=== PATIENT | female | born 1965 | race Caucasian/White ===

== ENCOUNTER 2020-11-24 22:02 | Observation (INO) | payer OTHER ==
[2020-11-24] MEDS ORDERED: DUONEB 0.5-3 MG/3 ml Neb IH ONE ×2 (22:21→22:33)
[2020-11-24 22:32] LABS: Absolute Neutrophil Ct (ANC) 5.21 (1.4-6.9); BASOPHIL % 0.4 % (0.0-0.4); Basophil (Absolute #) 0.04 (0-0.4); Eosinophil % 2.4 % (0.00-5.0); Eosinophil (Absolute #) 0.24 (0-0.5); Hematocrit 42.7 % (35-47); Hemoglobin 13.7 gm/dl (12.0-16.0); Lymphocyte (Absolute #) 3.74 (1.0-4.6); Lymphocytes % 36.8 % (24.0-44.0); Mean Cell Volume 91.6 fl (78-100); Mean Corpuscular Hemoglobin 29.4 pg (26-32); Mean Corpuscular Hgb Concent. 32.1 g/dl (32-36); Mean Platelet Volume 10.1 fl (7.5-11.0); Monocyte (Absolute #) 0.92 (0.0-1.3); Monocytes % 9.1 % (0.0-12.0); Neutrophil % 51.3 % (36.0-66.0); Platelet Count 265 K/mm3 (150-450); Red Blood Count 4.66 M/mm3 (4.1-5.4); Red Cell Distribution Width 13.7 % (11.5-14.0); White Blood Count 10.2 K/mm3 (4.0-10.5)
--- NOTE | 2020-11-24 22:34 | ERPHSYRPT ---
- History of Present Illness Time Seen by Provider: 11/24/20 22:10 Source: patient Exam Limitations: no limitations Patient Subjective Stated Complaint: pt states "For the past 2 nights I have been getting short of breath at night time." "I just got my 2nd covid vaccine an d thought it could be the side effect." Triage Nursing Assessment: pt ambulated into the er; pt is axo x4; c/o shortness of breath; pt states that she has been sob for the past 2 days; pt states that she received her covid vaccine 3 days ago and thought it could be a side effect of the vaccine; pt states that the SOB is worse at night time; pt states that she has generalized weakness; pt states that she is having back pain; pt states that she had nausea and vomited a couple times; pt states that she has trouble walking and getting SOB; pt does not appear to be in distress; pt has wet cough; pt states that vomiting up clear liquid; pt states that she has chills; clear lung sounds in all lobes; clear heart tones; hypertension Physician History: 55 years old female presented in the ER with chief complaint of cough and shortness of breath for the last 2 days. Patient reports she received second dose of Covid vaccine 3 days ago and started to have aches and pains along with chills. 2 days ago she started to have shortness of breath especially at nighttime with activity and yesterday started to have cough productive of minimal clear sputum. Patient reports she gets short of breath after taking 15- 20 steps and improves with resting. Denies any chest tightness pressure or pain. Also report having some soreness in the chest with deep breathing. No history of CAD asthma or COPD. Timing/Duration: day(s) (3), gradual onset, worse Activities at Onset: activity Severity of Dyspnea-Max: moderate Severity of Dyspnea-Current: moderate Modifying Factors: Improves With: rest. Worsens With: activity, coughing, deep breath Associated Symptoms: cough, chest pain/discomfort, painful breathing, productive cough, tightness, No wheezing, No heaviness, No leg swelling, No muscle spasms f eet Allergies/Adverse Reactions: amitriptyline [From Elavil] Allergy (Verified 11/24/20 22:33) clarithromycin [From Biaxin] Allergy (Verified 11/24/20 22:33) Iodinated Contrast Media Allergy (Verified 11/25/20 00:18) Hives morphine Allergy (Verified 11/24/20 22:07) Hives Sulfa (Sulfonamide Antibiotics) Allergy (Verified 11/24/20 22:07) Home Medications: Acetaminophen [Acetaminophen 8 Hour] 1,300 mg PO Q8H PRN 11/24/20 [History] Albuterol Sulfate [Proair Hfa] 1 puff IH Q6H PRN 11/24/20 [History] Aspirin EC 81 mg [Ecotrin 81 mg] 81 mg PO DAILY 11/24/20 [History] Cetirizine HCl [Zyrtec] 10 mg PO DAILY 11/24/20 [History] EPINEPHrine [Symjepi] 0.3 mg IJ DAILY PRN 11/24/20 [History] Erenumab-Aooe [Aimovig Autoinjector] 70 mg SQ UD 11/24/20 [History] Fluoxetine HCl [Prozac] 40 mg PO DAILY 11/24/20 [History] Fluticasone Propionate [Flonase NASAL] 16 gm NS BID 11/24/20 [History] RX: Erenumab-Aooe [Aimovig Autoinjector] 140 mg SQ UD 11/24/20 [History] RX: Ibuprofen 800 mg PO TID 11/24/20 [History] RX: Omeprazole 40 mg PO DAILY 11/24/20 [History] RX: Ropinirole HCl 0.25 mg PO HS 11/24/20 [History] Tizanidine HCl 4 mg [Zanaflex 4 MG] 8 mg PO HS 11/24/20 [History] Hx Tetanus, Diphtheria Vaccination/Date Given: Yes Hx Influenza Vaccination/Date Given: Yes Hx Pneumococcal Vaccination/Date Given: No Travel Risk - International Travel Have you traveled outside of the country in past 3 weeks: No - Coronavirus Screening Symptoms: Shortness of Breath, Headaches/Body Aches/Fatigue Close contact with a COVID-19 positive Pt in past 14-21 Days: No - Vaccine Status Have you recieved a Covid-19 vaccination: Yes [employer]: Moderna - Vaccination Dates Date of 2cond Vaccination (if applicable): 11/21/20 - Review of Systems Constitutional: No Symptoms Eyes: No Symptoms Ears, Nose, & Throat: No Symptoms Respiratory: Cough, Dyspnea, Dyspnea on Exertion (MARIO) Cardiac: No Symptoms Abdominal/Gastrointestinal: No Symptoms Genitourinary Symptoms: No Symptoms Musculoskeletal: No Symptoms Skin: No Symptoms Neurological: No Symptoms Psychological: No Symptoms Endocrine: No Symptoms Hematologic/Lymphatic: No Symptoms Immunological/Allergic: No Symptoms - Past Medical History Pertinent Past Medical History: Yes ENT History: No Pertinent History Cardiac History: No Pertinent History Respiratory History: No Pertinent History Endocrine Medical History: No Pertinent History Musculoskeletal History: Arthritis GI Medical History: GERD History: No Pertinent History Psycho-Social History: Depression Female Reproductive Disorders: No Pertinent History Other Medical History: seasonal allergies, neurologic- dizziness, off balance, confusion; headaches - Past Surgical History Past Surgical History: Yes Gastrointestinal: Appendectomy, Cholecystectomy Musculoskeletal: Other Female Surgical History: Hysterectomy, Section Other Surgical History: cyst of hand remove - Social History Smoking Status: Former smoker Exposure to second hand smoke: No Drug Use: none Patient Lives Alone: No - Nursing Vital Signs Nursing Vital Signs: Initial Vital Signs Temperature 98.2 F 11/24/20 22:07 Pulse Rate 73 11/24/20 22:07 Respiratory Rate 20 11/24/20 22:07 Blood Pressure 163/92 11/24/20 22:07 O2 Sat by Pulse Oximetry 97 11/24/20 22:07 Pain Scale Pain Intensity 6 - Physical Exam General Appearance: no apparent distress, alert Eye Exam: PERRL/EOMI Ears, Nose, Throat Exam: hearing grossly normal, pharyngeal erythema Neck Exam: normal inspection, supple, full range of motion Respiratory Exam: normal breath sounds, lungs clear Cardiovascular/Chest Exam: normal heart sounds, regular rate/rhythm Abdominal/Gastrointestinal Exam: soft, No tenderness Extremity Exam: non-tender, normal range of motion, normal inspection Neurologic Exam: alert, oriented x 3, cooperative Skin Exam: normal color SpO2 Interpretation: normal SpO2: 97 O2 Delivery: Room Air - Course EKG Interpreted by Me: RATE ([id number]), Sinus Rhythm, NORMAL AXIS, NORMAL INTERVALS, NORMAL QRS Ordered Tests: Active Orders 24 hr Category Date Time Status EKG-ER Only STAT Care 11/24/20 22:21 Active IV Insertion STAT Care 11/24/20 22:21 Active CHEST 1 VIEW (PORTABLE) Stat Exams 11/25/20 00:15 Taken BLOOD CULTURE Stat Lab 11/25/20 Ordered CBC W DIFF Stat Lab 11/24/20 22:15 Completed CMP Stat Lab 11/24/20 22:15 Completed D-DIMER QUANTITATIVE Stat Lab 11/24/20 22:15 Completed INFLUENZA A+B LIBERTAD Stat Lab 11/24/20 22:29 Completed LIPASE Stat Lab 11/25/20 00:54 Ordered NT PRO BNP Stat Lab 11/24/20 22:15 Completed TROPONIN Q3H Lab 11/24/20 22:15 Completed TROPONIN Q3H Lab 11/25/20 01:30 Ordered TROPONIN Q3H Lab 11/25/20 04:30 Ordered TROPONIN Q3H Lab 11/25/20 07:30 Ordered TROPONIN Q3H Lab 11/25/20 10:30 Ordered Respiratory Therapy Assessment DAILY RT 11/24/20 22:39 Completed Medication Summary Discontinued Medications Generic Name Dose Route Start Last Admin Trade Name Freq PRN Reason Stop Dose Admin Albuterol/Ipratropium 3 ml 11/24/20 22:21 11/24/20 22:36 Duoneb 0.5-3 Mg/3 Ml Neb IH 11/24/20 22:22 3 ml STAT ONE Administration Albuterol/Ipratropium Confirm 11/24/20 22:33 Duoneb 0.5-3 Mg/3 Ml Neb Administered 11/24/20 22:34 Dose 3 ml IH .STK-MED ONE Diphenhydramine HCl 25 mg 11/25/20 00:53 Benadryl 50 Mg/Ml IV 11/25/20 00:54 STAT ONE Famotidine 20 mg 11/25/20 00:53 Pepcid 20 Mg Vial IV 11/25/20 00:54 STAT ONE Methylprednisolone Sodium Succinate 125 mg 11/25/20 00:53 Solu-Medrol 125 Mg IV 11/25/20 00:54 STAT ONE Ondansetron HCl Confirm 11/24/20 23:30 Zofran 4 Mg/2 Ml Vial Administered 11/24/20 23:31 Dose 4 mg .ROUTE .STK-MED ONE Ondansetron HCl 4 mg 11/24/20 23:38 11/24/20 23:39 Zofran 4 Mg/2 Ml Vial IV 11/24/20 23:39 4 mg STAT ONE Administration Lab/Rad Data: Laboratory Result Diagrams 11/24/20 22:15 11/24/20 22:15 Laboratory Results 11/24/20 11/24/20 11/24/20 Range/Units 22:29 22:15 22:15 WBC (4.0-10.5) K/mm3 RBC (4.1-5.4) M/mm3 Hgb (12.0-16.0) gm/dl Hct (35-47) % MCV (78-100) fl MCH (26-32) pg MCHC (32-36) g/dl RDW (11.5-14.0) % Plt Count (150-450) K/mm3 MPV (7.5-11.0) fl Gran % (36.0-66.0) % Eos # (Auto) (0-0.5) Absolute Lymphs (auto) (1.0-4.6) Absolute Monos (auto) (0.0-1.3) Lymphocytes % (24.0-44.0) % Monocytes % (0.0-12.0) % Eosinophils % (0.00-5.0) % Basophils % (0.0-0.4) % Absolute Granulocytes (1.4-6.9) Basophils # (0-0.4) D-Dimer 534 H* (215-500) ng/mL Sodium (137-145) mmol/L Potassium (3.5-5.1) mmol/L Chloride (98-107) mmol/L Carbon Dioxide (22-30) mmol/L Anion Gap (5-15) MEQ/L BUN (7-17) mg/dL Creatinine (0.52-1.04) mg/dL Estimated GFR ML/MIN Glucose (74-106) mg/dL Calcium (8.4-10.2) mg/dL Total Bilirubin (0.2-1.3) mg/dL AST (14-36) U/L ALT (0-35) U/L Alkaline Phosphatase (38-126) U/L Troponin I < 0.012 (0.000-0.034) ng/mL NT-Pro-B Natriuret Pep (0-900) pg/mL Serum Total Protein (6.3-8.2) g/dL Albumin (3.5-5.0) g/dL Influenza Type A Ag NEGATIVE (NEGATIVE) Influenza Type B Ag NEGATIVE (NEGATIVE) 11/24/20 11/24/20 Range/Units 22:15 22:15 WBC 10.2 (4.0-10.5) K/mm3 RBC 4.66 (4.1-5.4) M/mm3 Hgb 13.7 (12.0-16.0) gm/dl Hct 42.7 (35-47) % MCV 91.6 (78-100) fl MCH 29.4 (26-32) pg MCHC 32.1 (32-36) g/dl RDW 13.7 (11.5-14.0) % Plt Count 265 (150-450) K/mm3 MPV 10.1 (7.5-11.0) fl Gran % 51.3 (36.0-66.0) % Eos # (Auto) 0.24 (0-0.5) Absolute Lymphs (auto) 3.74 (1.0-4.6) Absolute Monos (auto) 0.92 (0.0-1.3) Lymphocytes % 36.8 (24.0-44.0) % Monocytes % 9.1 (0.0-12.0) % Eosinophils % 2.4 (0.00-5.0) % Basophils % 0.4 (0.0-0.4) % Absolute Granulocytes 5.21 (1.4-6.9) Basophils # 0.04 (0-0.4) D-Dimer (215-500) ng/mL Sodium 138 (137-145) mmol/L Potassium 3.1 L (3.5-5.1) mmol/L Chloride 102 (98-107) mmol/L Carbon Dioxide 23 (22-30) mmol/L Anion Gap 15.9 H (5-15) MEQ/L BUN 9 (7-17) mg/dL Creatinine 0.79 (0.52-1.04) mg/dL Estimated GFR > 60.0 ML/MIN Glucose 104 (74-106) mg/dL Calcium 9.3 (8.4-10.2) mg/dL Total Bilirubin 0.40 (0.2-1.3) mg/dL AST 24 (14-36) U/L ALT 20 (0-35) U/L Alkaline Phosphatase 98 (38-126) U/L Troponin I (0.000-0.034) ng/mL NT-Pro-B Natriuret Pep 160 (0-900) pg/mL Serum Total Protein 7.2 (6.3-8.2) g/dL Albumin 4.1 (3.5-5.0) g/dL Influenza Type A Ag (NEGATIVE) Influenza Type B Ag (NEGATIVE) - Progress Progress: unchanged Air Movement: good Progress Note: 11/25/20 00:57 55 years old is evaluated for increasing dyspnea on exertion with cough. Patient is getting hypoxic to 86% with ambulation and even resting oxygen saturation around 88/89%. She is given DuoNeb with no significant improvement. Lungs bilateral clear. Chest x-ray did not show any acute pneumonic infiltrate reviewed by me, official report is pending. She has normal white count, mild hypokalemia and negative troponins. D-dimers mildly elevated but age-adjusted negative. Patient is allergic to contrast dye, will give her pretreatment befo re CTA chest done. She is given a dose of antibiotics. Patient is currently on 2 L oxygen and saturation around 97%. I believe patient would benefit with observation and further evaluation of the cause of dyspnea. Discussed with Dr. Miranda and patient is being admitted. Blood Culture(s) Obtained: Yes Antibiotics given: Yes Discussed with : Lolis Will see patient in: hospital (observation) Counseled pt/family regarding: lab results, diagnosis, rad results - Departure Departure Disposition: Observation Clinical Impression: Dyspnea on exertion, Bronchitis Respiratory failure Qualifiers: Chronicity: acute Respiratory failure complication: hypoxia Qualified Code(s): J96.01 - Acute respiratory failure with hypoxia Condition: Stable Critical Care Time: No Referrals: [facility] [NON-STAFF PHY W/O PRIVILEGES] -
[2020-11-24 22:48] LABS: INFLUENZA A NEGATIVE (NEGATIVE); INFLUENZA B NEGATIVE (NEGATIVE)
[2020-11-24 22:51] LABS: ALBUMIN 4.1 g/dL (3.5-5.0); ALKALINE PHOSPHATASE 98 U/L (38-126); ANION GAP 15.9 MEQ/L (5-15); BLOOD UREA NITROGEN 9 mg/dL (7-17); CHLORIDE 102 mmol/L (98-107); Calcium 9.3 mg/dL (8.4-10.2); Carbon Dioxide 23 mmol/L (22-30); Creatinine 1 0.79 mg/dL (0.52-1.04); EST GLOMERULAR FILTRATION RATE > 60.0 ML/MIN; Glucose 104 mg/dL (74-106); NT PRO BNP 160 pg/mL (0-900); Potassium 3.1 mmol/L (3.5-5.1); SGOT/AST 24 U/L (14-36); SGPT/ALT 20 U/L (0-35); SODIUM 138 mmol/L (137-145); Total Protein 7.2 g/dL (6.3-8.2)
[2020-11-24] MEDS ORDERED: Zofran 4 MG/2 ML VIAL ONE (23:30)
[2020-11-24] MEDS ORDERED: Zofran 4 MG/2 ML VIAL IV ONE (23:38)
[2020-11-25] MEDS ORDERED: Pepcid 20 MG VIAL IV ONE ×2 (00:53→00:55)
[2020-11-25] MEDS ORDERED: solu-MEDROL 125 MG IV ONE (00:53)
[2020-11-25] MEDS ORDERED: BENADRYL 50 MG/ML IV ONE ×2 (00:53→02:53)
[2020-11-25] MEDS ORDERED: BENADRYL 50 MG/ML ONE ×2 (00:55→02:52)
[2020-11-25] MEDS ORDERED: solu-MEDROL 125 MG ONE (00:55)
[2020-11-25] MEDS ORDERED: ROCEPHIN 1 Gm-D5w 50 ml Bag** 1 G/50 ML IVPB IV STA (00:56)
[2020-11-25] MEDS ORDERED: ROCEPHIN 1 Gm-D5w 50 ml Bag** 1 G/50 ML IVPB IV ONE (01:04)
[2020-11-25 01:56] LABS: INFLUENZA A NEGATIVE (NEGATIVE); INFLUENZA B NEGATIVE (NEGATIVE); RESPIRATORY SYNCTIAL VIRUS NEGATIVE (Negative)
[2020-11-25] MEDS ORDERED: DUONEB 0.5-3 MG/3 ml Neb IH SCH (04:36)
[2020-11-25] MEDS ORDERED: Zofran 4 MG/2 ML VIAL IV PRN (04:36)
[2020-11-25] MEDS ORDERED: solu-MEDROL 125 MG IV SCH (04:36)
[2020-11-25] MEDS ORDERED: TYLENOL 325 MG PO PRN ×2 (04:36→11:19)
[2020-11-25] MEDS ORDERED: DUONEB 0.5-3 MG/3 ml Neb IH PRN (05:22)
[2020-11-25] MEDS: solu-MEDROL 125 MG IV SCH ×3 (07:34→17:44)
--- NOTE | 2020-11-25 08:46 | XRAY ---
Indication: Short of breath and cough. Elevated d-dimer. Multiple contiguous axial images obtained through the chest using 80 cc Isovue 370 contrast and PE protocol. Comparison: None There is good opacification of the pulmonary arteries to include the lobar and segmental branches. No pulmonary embolus. Heart is not enlarged. Aorta is normal in course and caliber. No pathologic mediastinal/hilar lymphadenopathy. Small hiatal hernia. Lungs demonstrate mild pulmonary emphysema and minimal bilateral dependent atelectasis. Also subtle patchy peripheral groundglass airspace opacities bilaterally without consolidation or effusion. Bony thorax intact with minimal degenerative changes throughout the spine. Limited upper abdomen demonstrates mild fatty liver. Incidental bilateral extrarenal pelvises. Impression: 1. Negative pulmonary embolus. 2. Subtle patchy bilateral peripheral groundglass airspace disease. 3. Incidental pulmonary emphysema, small hiatal hernia, and fatty liver. Comment: Preliminary interpretation was made by [facility]. No critical discrepancy.
--- NOTE | 2020-11-25 08:46 | XRAY ---
Indication: Short of breath and cough. Comparison: February 01, 2010. Portable chest clear. Heart and mediastinal structures within normal limits. Bony thorax intact. Impression: Radiographically nonacute chest.
[2020-11-25] MEDS: Pepcid 20 MG VIAL IV SCH ×2 (09:40→21:26)
[2020-11-25] MEDS ORDERED: VIBRAMYCIN 100 MG*** 100 MG in Dextrose 5%/Water IV Soln. 100ML PLUS BAG 100 ML IV SCH ×4 (10:00)
[2020-11-25] MEDS ORDERED: Ventolin Hfa MDI IH PRN (11:14)
[2020-11-25] MEDS ORDERED: ACETAMINOPHEN 1300 MG PO PRN (11:14)
[2020-11-25] MEDS ORDERED: EPINEPHRINE 0.3 MG IJ PRN (11:14)
[2020-11-25] MEDS ORDERED: ERENUMAB AOOE 70 MG SQ SCH (11:15)
[2020-11-25] MEDS ORDERED: EPINEPHRINE 1MG/ML AMP SQ PRN (11:22)
[2020-11-25] MEDS ORDERED: VENTOLIN COMMON CANISTER IH PRN (11:26)
[2020-11-25] MEDS ORDERED: MEDICATION INTERVENTION MC SCH (11:30)
[2020-11-25] MEDS: MAG-OX 400 PO SCH (11:36)
[2020-11-25] MEDS: Protonix 40MG Tablet PO SCH (11:37)
[2020-11-25] MEDS: Prozac 20 MG PO SCH (11:38)
[2020-11-25] MEDS: ECOTRIN 81 MG PO SCH (11:38)
[2020-11-25] MEDS: CLARITIN 10 MG PO SCH (11:38)
[2020-11-25] MEDS: Flonase NASAL NS SCH ×2 (11:41→21:25)
[2020-11-25] MEDS ORDERED: Robitussin-Dm Syrup PO PRN (14:40)
--- NOTE | 2020-11-25 14:40 | PCM.HP ---
History of Present Illness - Chief Complaint Chief Complaint: acute hypoxic respiratory failure History of Present Illness: is a 55 year old female who presented to ER with shortness of breath and cough productive of clear to white mucus,N/V x 2 days. Oxygen sats 87%in ER.Patient is follow by Allergy/Immunology Dr Su and has epipen if needed.States she is allergic to jovana and cockroaches and other. Her administers a weekly allergy shot at home per Dr Su's instruction. She received her 2nd Covid vaccine 3 days prior to these symptoms starting.Patient denies fever or chest pain or hemoptysis. - Review of Systems Constitutional: Chills, Other (no fever) Eyes: No Symptoms Ears, Nose, & Throat: No Symptoms Respiratory: Cough, Short Of Breath, Wheezing Cardiac: No Symptoms Abdominal/Gastrointestinal: Nausea, Vomiting Genitourinary Symptoms: No Symptoms Musculoskeletal: No Symptoms Skin: No Symptoms Neurological: Dizziness, Headache (is under car of Neurologist Dr Jaden Harris- to have EEG 12/05/2020), Other Psychological: No Symptoms Endocrine: No Symptoms Hematologic/Lymphatic: No Symptoms Immunological/Allergic: Food Allergy, Other (allergy to jovana and cockroaches) Medications & Allergies Home Medications: Home Medication List Acetaminophen [Acetaminophen 8 Hour] 1,300 mg PO Q8H PRN 11/24/20 [History Confirmed 11/25/20] Albuterol Sulfate [Proair Hfa] 1 puff IH Q6H PRN 11/24/20 [History Confirmed 11/24/20] Aspirin EC 81 mg [Ecotrin 81 mg] 81 mg PO DAILY 11/24/20 [History Confirmed 11/25/20] Cetirizine HCl [Zyrtec] 10 mg PO DAILY 11/24/20 [History Confirmed 11/25/20] EPINEPHrine [Symjepi] 0.3 mg IJ DAILY PRN 11/24/20 [History Confirmed 11/24/20] Erenumab-Aooe [Aimovig Autoinjector] 70 mg SQ UD 11/24/20 [History Confirmed 11/24/20] Erenumab-Aooe [Aimovig Autoinjector] 140 mg SQ UD 11/24/20 [History Confirmed 11/24/20] Fluoxetine HCl [Prozac] 40 mg PO DAILY 11/24/20 [History Confirmed 11/25/20] Fluticasone Propionate [Flonase NASAL] 16 gm NS BID 11/24/20 [History Confirmed 11/24/20] Ibuprofen 800 mg PO TID 11/24/20 [History Confirmed 11/24/20] Omeprazole 40 mg PO DAILY 11/24/20 [History Confirmed 11/25/20] Ropinirole HCl 0.25 mg PO HS 11/24/20 [History Confirmed 11/25/20] Tizanidine HCl 4 mg [Zanaflex 4 MG] 8 mg PO HS 11/24/20 [History Confirmed 11/25/20] Magnesium 250 mg PO DAILY 11/25/20 [History Confirmed 11/25/20] Allergies/Adverse Reactions: Allergies Allergy/AdvReac Type Severity Reaction Status Date / Time amitriptyline [From Elavil] Allergy Verified 11/24/20 22:33 clarithromycin [From Biaxin] Allergy Verified 11/24/20 22:33 Iodinated Contrast Media Allergy Hives Verified 11/25/20 00:18 morphine Allergy Hives Verified 11/24/20 22:07 Sulfa (Sulfonamide Allergy Verified 11/24/20 22:07 Antibiotics) - Past Medical History Past Medical History: Yes Neurological History: No Pertinent History ENT History: No Pertinent History Cardiac History: No Pertinent History Respiratory History: No Pertinent History, Other (allergies and bronchospasm ) Endocrine Medical History: No Pertinent History Musculoskelatal History: Arthritis GI Medical History: GERD History: No Pertinent History Pyscho-Social History: Depression Reproductive Disorders: No Pertinent History Comment: seasonal allergies, neurologic- dizziness, off balance, confusion; headaches - Female History Are you now?: No - Past Surgical History Past Surgical History: Yes Neuro Surgical History: No Pertinent History Cardiac History: No Pertinent History Respiratory Surgery: No Pertinent History GI Surgical History: Appendectomy, Cholecystectomy Genitourinary Surgical Hx: No Pertinent History Musculskeletal Surgical Hx: Other Female Surgical History: Hysterectomy, Section Other Surgical History: cyst of hand remove - Social History Smoking Status: Former smoker Exposure to second hand smoke: No Alcohol: Rarely Drug Use: none - Physical Exam Vital Signs: Vital Signs - 24 hr Temp Pulse Resp BP Pulse Ox 11/25/20 12:00 97.3 F 72 20 134/67 97 11/25/20 08:00 97.7 F 75 18 139/76 95 11/25/20 07:14 74 16 95 11/25/20 04:59 97.3 F 77 18 169/86 91 L 11/25/20 04:08 74 16 141/87 96 11/25/20 03:00 98.2 F 72 156/95 97 11/25/20 02:24 98.2 F 72 156/95 97 11/25/20 01:08 72 156/95 97 11/25/20 01:00 97 11/25/20 00:07 77 123/74 95 11/24/20 23:36 76 133/84 95 11/24/20 22:39 71 17 96 11/24/20 22:07 98.2 F 73 20 163/92 97 General Appearance: no apparent distress Neurologic Exam: alert, oriented x 3, cooperative, emblem maker II-XII nml as tested, normal mood/affect, other (no motor or sensory defecit) Eye Exam: PERRL/EOMI Ears, Nose, Throat Exam: moist mucous membranes, other (PND) Neck Exam: normal inspection Respiratory Exam: diminished breath sounds, wheezing (left mid) Cardiovascular Exam: regular rate/rhythm, other (no mur no edema) Gastrointestinal/Abdomen Exam: soft (mildly tender epigastrum), other (emesis in basin is thick clear to white mucuc) Back Exam: normal inspection Extremity Exam: normal inspection Skin Exam: normal color, warm, dry Results - Labs Lab/Micro Results: Lab Results-Last 24 Hours 11/24/20 11/24/20 11/24/20 Range/Units 22:15 22:15 22:15 WBC 10.2 (4.0-10.5) K/mm3 RBC 4.66 (4.1-5.4) M/mm3 Hgb 13.7 (12.0-16.0) gm/dl Hct 42.7 (35-47) % MCV 91.6 (78-100) fl MCH 29.4 (26-32) pg MCHC 32.1 (32-36) g/dl RDW 13.7 (11.5-14.0) % Plt Count 265 (150-450) K/mm3 MPV 10.1 (7.5-11.0) fl Gran % 51.3 (36.0-66.0) % Eos # (Auto) 0.24 (0-0.5) Absolute Lymphs (auto) 3.74 (1.0-4.6) Absolute Monos (auto) 0.92 (0.0-1.3) Lymphocytes % 36.8 (24.0-44.0) % Monocytes % 9.1 (0.0-12.0) % Eosinophils % 2.4 (0.00-5.0) % Basophils % 0.4 (0.0-0.4) % Absolute Granulocytes 5.21 (1.4-6.9) Basophils # 0.04 (0-0.4) D-Dimer 534 H* (215-500) ng/mL Sodium 138 (137-145) mmol/L Potassium 3.1 L (3.5-5.1) mmol/L Chloride 102 (98-107) mmol/L Carbon Dioxide 23 (22-30) mmol/L Anion Gap 15.9 H (5-15) MEQ/L BUN 9 (7-17) mg/dL Creatinine 0.79 (0.52-1.04) mg/dL Estimated GFR > 60.0 ML/MIN Glucose 104 (74-106) mg/dL Calcium 9.3 (8.4-10.2) mg/dL Total Bilirubin 0.40 (0.2-1.3) mg/dL AST 24 (14-36) U/L ALT 20 (0-35) U/L Alkaline Phosphatase 98 (38-126) U/L Troponin I (0.000-0.034) ng/mL NT-Pro-B Natriuret Pep 160 (0-900) pg/mL Serum Total Protein 7.2 (6.3-8.2) g/dL Albumin 4.1 (3.5-5.0) g/dL Lipase (23-300) U/L Influenza Type A Ag (NEGATIVE) Influenza Type B Ag (NEGATIVE) RSV (PCR) (Negative) SARS-CoV-2 (PCR) (NEGATIVE) 11/24/20 11/24/20 11/25/20 Range/Units 22:15 22:29 00:00 WBC (4.0-10.5) K/mm3 RBC (4.1-5.4) M/mm3 Hgb (12.0-16.0) gm/dl Hct (35-47) % MCV (78-100) fl MCH (26-32) pg MCHC (32-36) g/dl RDW (11.5-14.0) % Plt Count (150-450) K/mm3 MPV (7.5-11.0) fl Gran % (36.0-66.0) % Eos # (Auto) (0-0.5) Absolute Lymphs (auto) (1.0-4.6) Absolute Monos (auto) (0.0-1.3) Lymphocytes % (24.0-44.0) % Monocytes % (0.0-12.0) % Eosinophils % (0.00-5.0) % Basophils % (0.0-0.4) % Absolute Granulocytes (1.4-6.9) Basophils # (0-0.4) D-Dimer (215-500) ng/mL Sodium (137-145) mmol/L Potassium (3.5-5.1) mmol/L Chloride (98-107) mmol/L Carbon Dioxide (22-30) mmol/L Anion Gap (5-15) MEQ/L BUN (7-17) mg/dL Creatinine (0.52-1.04) mg/dL Estimated GFR ML/MIN Glucose (74-106) mg/dL Calcium (8.4-10.2) mg/dL Total Bilirubin (0.2-1.3) mg/dL AST (14-36) U/L ALT (0-35) U/L Alkaline Phosphatase (38-126) U/L Troponin I < 0.012 (0.000-0.034) ng/mL NT-Pro-B Natriuret Pep (0-900) pg/mL Serum Total Protein (6.3-8.2) g/dL Albumin (3.5-5.0) g/dL Lipase 103 (23-300) U/L Influenza Type A Ag NEGATIVE (NEGATIVE) Influenza Type B Ag NEGATIVE (NEGATIVE) RSV (PCR) (Negative) SARS-CoV-2 (PCR) (NEGATIVE) 11/25/20 11/25/20 11/25/20 Range/Units 01:14 01:14 04:38 WBC (4.0-10.5) K/mm3 RBC (4.1-5.4) M/mm3 Hgb (12.0-16.0) gm/dl Hct (35-47) % MCV (78-100) fl MCH (26-32) pg MCHC (32-36) g/dl RDW (11.5-14.0) % Plt Count (150-450) K/mm3 MPV (7.5-11.0) fl Gran % (36.0-66.0) % Eos # (Auto) (0-0.5) Absolute Lymphs (auto) (1.0-4.6) Absolute Monos (auto) (0.0-1.3) Lymphocytes % (24.0-44.0) % Monocytes % (0.0-12.0) % Eosinophils % (0.00-5.0) % Basophils % (0.0-0.4) % Absolute Granulocytes (1.4-6.9) Basophils # (0-0.4) D-Dimer (215-500) ng/mL Sodium (137-145) mmol/L Potassium (3.5-5.1) mmol/L Chloride (98-107) mmol/L Carbon Dioxide (22-30) mmol/L Anion Gap (5-15) MEQ/L BUN (7-17) mg/dL Creatinine (0.52-1.04) mg/dL Estimated GFR ML/MIN Glucose (74-106) mg/dL Calcium (8.4-10.2) mg/dL Total Bilirubin (0.2-1.3) mg/dL AST (14-36) U/L ALT (0-35) U/L Alkaline Phosphatase (38-126) U/L Troponin I < 0.012 < 0.012 (0.000-0.034) ng/mL NT-Pro-B Natriuret Pep (0-900) pg/mL Serum Total Protein (6.3-8.2) g/dL Albumin (3.5-5.0) g/dL Lipase (23-300) U/L Influenza Type A Ag NEGATIVE (NEGATIVE) Influenza Type B Ag NEGATIVE (NEGATIVE) RSV (PCR) NEGATIVE (Negative) SARS-CoV-2 (PCR) NEGATIVE (NEGATIVE) - Radiology Impressions Radiology Exams & Impressions: Radiology Procedures Category Date Time Status CHEST 1 VIEW (PORTABLE) Stat Exams 11/25/20 00:15 Completed CHEST WITH CONTRAST [CT] Stat Exams 11/25/20 02:32 Completed - Other Procedures and Tests Respiratory Therapy 11/24/20 22:39 Respiratory Therapy Assessment DAILY 11/25/20 04:36 Oxygen Nasal Cannula 2 lpm Assessment/Plan (1) Bronchospasm with bronchitis, acute Current Visit: Yes Status: Acute Assessment & Plan: stll tight mid left lung field. WBC not elevated -d/c Rocephin and Doxy,continue Solumedrol,start Singulair Code(s): J20.9 - ACUTE BRONCHITIS, UNSPECIFIED (2) Nausea & vomiting Current Visit: Yes Status: Acute Qualifiers: Vomiting type: unspecified Vomiting Intractability: non-intractable Qualified Code(s): R11.2 - Nausea with vomiting, unspecified Assessment & Plan: has improved,emesis is clear to white thick mucus-no bile. Code(s): R11.2 - NAUSEA WITH VOMITING, UNSPECIFIED (3) Multiple allergies Current Visit: Yes Status: Chronic Assessment & Plan: follows with [facility]-notify her of admission Code(s): Z88.9 - ALLERGY STATUS TO UNSPECIFIED DRUG/MEDS/BIOL SUBST (4) Chronic headaches Current Visit: Yes Status: Chronic Qualifiers: Headache type: unspecified Assessment & Plan: Work up in progress with Dr Jaden Harris,EEG to be done 12/05/20 per patient for possible seizures Code(s): R51.9 - HEADACHE, UNSPECIFIED; G89.29 - OTHER CHRONIC PAIN
[2020-11-25] MEDS ORDERED: Diflucan 100 MG PO ONE (15:00)
[2020-11-25] MEDS ORDERED: IBUPROFEN 800 MG PO SCH (15:00)
[2020-11-25] MEDS: MOTRIN 400 MG PO SCH ×2 (15:12→21:26)
[2020-11-25] MEDS: Requip 0.5 MG PO SCH (21:26)
[2020-11-25] MEDS: Zanaflex 4 MG PO SCH (21:26)
[2020-11-25] MEDS ORDERED: ROCEPHIN 1 Gm-D5w 50 ml Bag** 1 G/50 ML IVPB IV SCH (22:00)
[2020-11-25] MEDS ORDERED: ROPINIROLE HCL 0.25 MG PO SCH (22:00)
[2020-11-26] MEDS: solu-MEDROL 125 MG IV SCH ×2 (05:40)
[2020-11-26 06:40] LABS: Absolute Neutrophil Ct (ANC) 13.42 (1.4-6.9); BASOPHIL % 0.1 % (0.0-0.4); Basophil (Absolute #) 0.02 (0-0.4); Eosinophil (Absolute #) 0 (0-0.5); Hematocrit 40.5 % (35-47); Hemoglobin 12.8 gm/dl (12.0-16.0); Lymphocyte (Absolute #) 1.93 (1.0-4.6); Lymphocytes % 12.2 % (24.0-44.0); Mean Cell Volume 93.1 fl (78-100); Mean Corpuscular Hemoglobin 29.4 pg (26-32); Mean Corpuscular Hgb Concent. 31.6 g/dl (32-36); Mean Platelet Volume 10.5 fl (7.5-11.0); Monocyte (Absolute #) 0.47 (0.0-1.3); Neutrophil % 84.7 % (36.0-66.0); Platelet Count 283 K/mm3 (150-450); Red Blood Count 4.35 M/mm3 (4.1-5.4); Red Cell Distribution Width 13.7 % (11.5-14.0); White Blood Count 15.8 K/mm3 (4.0-10.5)
[2020-11-26 06:54] LABS: ALBUMIN 3.5 g/dL (3.5-5.0); ALKALINE PHOSPHATASE 90 U/L (38-126); BLOOD UREA NITROGEN 12 mg/dL (7-17); CHLORIDE 101 mmol/L (98-107); Calcium 9.7 mg/dL (8.4-10.2); Carbon Dioxide 26 mmol/L (22-30); Creatinine 1 0.72 mg/dL (0.52-1.04); EST GLOMERULAR FILTRATION RATE > 60.0 ML/MIN; Glucose 186 mg/dL (74-106); Potassium 4.3 mmol/L (3.5-5.1); SGOT/AST 18 U/L (14-36); SGPT/ALT 15 U/L (0-35); SODIUM 136 mmol/L (137-145); Total Protein 6.4 g/dL (6.3-8.2)
[2020-11-26] MEDS ORDERED: NON-FORMULARY ITEM (Fluoxetine Hcl [Prozac] 40 MG) PO SCH (10:00)
[2020-11-26] MEDS ORDERED: NON-FORMULARY ITEM (Omeprazole [Omeprazole] 40 MG) PO SCH (10:00)
[2020-11-26] MEDS ORDERED: NON-FORMULARY ITEM (Cetirizine Hcl [Zyrtec] 10 MG) PO SCH (10:00)
[2020-11-26] MEDS ORDERED: NON-FORMULARY ITEM (Magnesium [Magnesium] 250 MG) PO SCH (10:00)
[2020-11-26] MEDS: MAG-OX 400 PO SCH (10:08)
[2020-11-26] MEDS: MOTRIN 400 MG PO SCH ×3 (10:08→21:52)
[2020-11-26] MEDS: ECOTRIN 81 MG PO SCH (10:08)
[2020-11-26] MEDS: Pepcid 20 MG VIAL IV SCH ×2 (10:08→21:52)
[2020-11-26] MEDS: Protonix 40MG Tablet PO SCH (10:08)
[2020-11-26] MEDS: Prozac 20 MG PO SCH (10:08)
[2020-11-26] MEDS: CLARITIN 10 MG PO SCH (10:08)
[2020-11-26] MEDS: Singulair 10 MG PO SCH (10:09)
[2020-11-26] MEDS: Flonase NASAL NS SCH ×2 (10:09→21:53)
[2020-11-26] MEDS ORDERED: BENADRYL 12.5 MG/5 ML PO PRN (14:39)
[2020-11-26] MEDS: Requip 0.5 MG PO SCH (21:52)
[2020-11-26] MEDS: Zanaflex 4 MG PO SCH (21:52)
[2020-11-27 06:36] VITALS: BP 108/55; PULSE 56
[2020-11-27 07:41] VITALS: O2SAT 92
[2020-11-27] MEDS ORDERED: DELTASONE 20 MG PO SCH (10:00)
[2020-11-27] MEDS: ECOTRIN 81 MG PO SCH (10:04)
[2020-11-27] MEDS: MAG-OX 400 PO SCH (10:04)
[2020-11-27] MEDS: CLARITIN 10 MG PO SCH (10:04)
[2020-11-27] MEDS: Prozac 20 MG PO SCH (10:05)
[2020-11-27] MEDS: Protonix 40MG Tablet PO SCH (10:05)
[2020-11-27] MEDS: MOTRIN 400 MG PO SCH (10:05)
[2020-11-27] MEDS: Singulair 10 MG PO SCH (10:05)
[2020-11-27] MEDS: Flonase NASAL NS SCH (10:06)
[2020-11-27] MEDS: Pepcid 20 MG VIAL IV SCH (10:06)
== END 2020-11-27 10:57 | disposition home or self-care (01) ==
LOC: ED 22:02 → MED SURG 11-25 02:22
PROVIDERS: ADMIT Family Medicine; ATTEND Family Medicine
DX: J20.9 Acute bronchitis, unspecified (principal); J96.01 Acute respiratory failure with hypoxia; R05 Cough; Z88.9 Allergy status to unspecified drugs, medicaments and biological substances; R51.9 Headache, unspecified; G89.29 Other chronic pain; R53.83 Other fatigue; R42 Dizziness and giddiness; R11.2 Nausea with vomiting, unspecified; Z79.899 Other long term (current) drug therapy; Z20.828 Contact with and (suspected) exposure to other viral communicable diseases
CPT/HCPCS: 0241U; 36000; 36415; 71045; 71260; 80053; 83690; 83880; 84484; 85025; 85379; 87040; 87400; 93005; 93268; 94640; 94760; 96374; 99285; G0378; J0696; J1200; J2405; J2930; A9270-GY

== ENCOUNTER 2023-09-16 23:46 | Emergency (ER) | payer OTHER ==
[2023-09-17 00:12] VITALS: TEMP 97.8
--- NOTE | 2023-09-17 00:22 | ERPHSYRPT ---
- History of Present Illness Time Seen by Provider: 09/16/23 23:55 Source: patient Exam Limitations: no limitations Patient Subjective Stated Complaint: pt states that since Saturday09/15/23 she has had symptoms of a UTI (and reports everything she is feeling is consistent with past UTI's) including urgency, frequency, burning, pressure, squeezing with urination. has been taking OTC med at home without relief. Triage Nursing Assessment: pt ambulated into room 8 independently with slow steady gait after standing on scale for weight acquisition. pt provided urine sample to registration staff while in waiting room. pt is alert and oriented times three, able to move all extremities, able to speak in complete sentences, and with resp even and unlabored. skin warm, pink, dry, and intact. pt reports slight bilat flank pain which is consistent with previous UTIs. pt denies difficulty with urination, blood in urine, change in appetite, n/v, sob, difficulty breathing, lightheadedness, dizziness, cp, abdominal pain, fever, cough, or chills. Physician History: 58-year-old female presented in the ER with complaints of UTI symptoms since yesterday. Patient reports increased urinary frequency, burning, sense of incomplete voiding. Patient reports it feels like razor blade cutting pain with urination. Denies associated nausea vomiting or flank pain. Has minimal low back pain. She did take emnl-yrs-xrpoabt medication with no significant relief. No fever or chills reported. Has history of appendectomy and cholecystectomy. Allergies/Adverse Reactions: amitriptyline [From Elavil] Allergy (Verified 09/16/23 23:58) clarithromycin [From Biaxin] Allergy (Verified 09/16/23 23:58) Iodinated Contrast Media Allergy (Verified 09/16/23 23:58) Hives morphine Allergy (Verified 09/16/23 23:58) Hives Sulfa (Sulfonamide Antibiotics) Allergy (Verified 09/16/23 23:58) Home Medications: Albuterol Sulfate [Proair Hfa] 1 puff IH Q6H PRN 11/24/20 [History] Cetirizine HCl [Zyrtec] 10 mg PO DAILY 11/24/20 [History] EPINEPHrine [Symjepi] 0.3 mg IJ DAILY PRN 11/24/20 [History] Erenumab-Aooe [Aimovig Autoinjector] 140 mg SQ UD 11/24/20 [History] Fluoxetine HCl [Prozac] 40 mg PO DAILY 11/24/20 [History] Fluticasone Propionate [Flonase NASAL] 16 gm NS BID 11/24/20 [History] Omeprazole 40 mg PO DAILY 11/24/20 [History] Ropinirole HCl 0.25 mg PO HS 11/24/20 [History] Tizanidine HCl 4 mg [Zanaflex 4 MG] 4 mg PO HS 11/24/20 [History] Magnesium 250 mg PO DAILY 11/25/20 [History] Hx Tetanus, Diphtheria Vaccination/Date Given: Yes Hx Influenza Vaccination/Date Given: No Hx Pneumococcal Vaccination/Date Given: No Travel Risk - International Travel Have you traveled outside of the country in past 3 weeks: No - Coronavirus Screening Are you exhibiting any of the following symptoms?: No Close contact with a COVID-19 positive Pt in past 14-21 Days: No - Vaccine Status Have you recieved a Covid-19 vaccination: Yes 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[employer] - Vaccination Dates Date of 2cond Vaccination (if applicable): 11/21/20 - Review of Systems Constitutional: No Symptoms Ears, Nose, & Throat: No Symptoms Respiratory: No Symptoms Cardiac: No Symptoms Abdominal/Gastrointestinal: No Symptoms Genitourinary Symptoms: Dysuria, Frequency, No Flank Pain Musculoskeletal: No Symptoms Skin: No Symptoms Endocrine: No Symptoms Hematologic/Lymphatic: No Symptoms - Past Medical History Pertinent Past Medical History: Yes Neurological History: Migraines, Peripheral Neuropathy ENT History: No Pertinent History Cardiac History: No Pertinent History Respiratory History: No Pertinent History Endocrine Medical History: No Pertinent History Musculoskeletal History: Osteoarthritis GI Medical History: GERD History: No Pertinent History Psycho-Social History: Depression Female Reproductive Disorders: No Pertinent History Other Medical History: PATIENT REPORTS PROBLEMS WITH RIGHT SHOULDER AND HAS UNDERGONE COURSE OF THERAPY FOR IT. HAS HEP AND REPORTS IMPROVING. - Past Surgical History Past Surgical History: Yes Neuro Surgical History: No Pertinent History Cardiac: No Pertinent History Respiratory: No Pertinent History Gastrointestinal: Appendectomy, Cholecystectomy Genitourinary: No Pertinent History Musculoskeletal: Other Female Surgical History: Hysterectomy, Section Other Surgical History: cyst of hand remove - Social History Smoking Status: Former smoker Exposure to second hand smoke: No Drug Use: none Patient Lives Alone: No - Nursing Vital Signs Nursing Vital Signs: Initial Vital Signs Pulse Rate 81 09/17/23 00:00 Respiratory Rate 20 09/17/23 00:00 Blood Pressure 163/102 09/17/23 00:00 O2 Sat by Pulse Oximetry 96 09/17/23 00:00 Pain Scale Pain Intensity 10 - Physical Exam General Appearance: no apparent distress Eye Exam: PERRL/EOMI Neck Exam: normal inspection, full range of motion Respiratory Exam: normal breath sounds, lungs clear Cardiovascular Exam: regular rate/rhythm, normal heart sounds Gastrointestinal/Abdomen Exam: soft, normal bowel sounds, tenderness (Suprapubic), other Back Exam: normal inspection, normal range of motion, No CVA tenderness Extremity Exam: normal inspection, normal range of motion Skin Exam: normal color SpO2 Interpretation: normal SpO2: 94 O2 Delivery: Room Air Ordered Tests: Active Orders 24 hr Category Date Time Status CULTURE,URINE Stat Lab 09/17/23 00:06 Received UA W/RFX UR CULTURE Stat Lab 09/17/23 00:06 Completed Medication Summary Discontinued Medications Generic Name Dose Route Start Last Admin Trade Name Freq PRN Reason Stop Dose Admin Acetaminophen 975 mg 09/17/23 00:21 09/17/23 00:24 Acetaminophen 325 Mg Tablet PO 09/17/23 00:22 975 mg STAT STA Administration Acetaminophen Confirm 09/17/23 00:23 Acetaminophen 325 Mg Tablet Administered 09/17/23 00:24 Dose 975 mg .ROUTE .INFIMET ONE Lab/Rad Data: Laboratory Results 09/17/23 Range/Units 00:06 Urine Color Dark Yellow A (Yellow) Urine Appearance Clear (Clear) Urine pH 6.5 (4.6-8.0) Ur Specific Stacy <=1.005 (1.005-1.030) Urine Protein Negative (Negative) Urine Glucose (UA) Negative (Negative) mg/dL Urine Ketones Negative (Negative) Urine Blood Moderate A (Negative) Urine Nitrite Positive A (Negative) Urine Bilirubin Negative (Negative) Urine Urobilinogen 0.2 (0.2) mg/dL Ur Leukocyte Esterase Large A (Negative) U Hyaline Cast (Auto) NONE SEEN (0-2) /LPF Urine Microscopic RBC 0-2 (0-5) /HPF Urine Microscopic WBC 51-100 A (0-5) /HPF Ur Epithelial Cells None Seen (None Seen) /HPF Urine Bacteria None Seen (None Seen) /HPF Urine Culture Reflexed YES (NO) - Progress Progress: unchanged Air Movement: good Progress Note: 09/17/23 00:40 58-year-old is evaluated for UTI symptoms since yesterday. Patient has suprapubic tenderness. Patient has positive nitrates in the urine, large amount of leukocyte Estrace and WBCs in the urine. Started on Keflex will continue with cefpodoxime to go home. Recommended taking Tylenol/ibuprofen as needed for symptomatic relief. Increase hydration. And outpatient follow-up. Discussed signs symptoms of worsening needing return to ER which she seems understanding. Patient does not have any flank tenderness, no fever chills or vomiting, do not think needs any other workup or it does not seem like she is having pyelonephritis and can be managed outpatient without any further workup. Blood Culture(s) Obtained: No Antibiotics given: Yes Counseled pt/family regarding: lab results, diagnosis, need for follow-up Medical Desision Making - Diagnostic Testing Diagnostic test were ordered, analyzed, and reviewed by me: Yes - Risk of complications The pt has a mod risk of morbidity or mortality based on: Need for prescription drug management - Departure Departure Disposition: Home Clinical Impression: Acute UTI (urinary tract infection) Condition: Stable Critical Care Time: No Referrals: EVIE MCCOY FNP [Primary Care Provider] - Follow up with PCP 1 day Instructions: Urinary Tract Infection, Adult (DC) Additional Instructions: Increase hydration. Take Tylenol/open as needed for symptomatic relief. Follow-up with primary care for reevaluation. Return to ER for increasing symptoms of UTI or if having flank pain, intractable nausea vomiting/fever chills etc. Prescriptions: Cefpodoxime Proxetil 200 mg [Vantin 200 mg] 200 mg PO BID 7 Days #14 tablet
[2023-09-17] MEDS ORDERED: TYLENOL 325 MG ONE (00:23)
[2023-09-17] MEDS: TYLENOL 325 MG PO STA (00:24)
[2023-09-17 00:36] LABS: ADD URINE CULTURE? YES (NO); Appearance Clear (Clear); Bacteria None Seen /HPF (None Seen); Bilirubin Negative (Negative); Blood Moderate (Negative); Epithelial Cells None Seen /HPF (None Seen); Glucose, Urine Negative (Negative); Hyaline Casts NONE SEEN /LPF (0-2); Ketones Negative (Negative); Leukocyte Esterase Large (Negative); Nitrite Positive (Negative); Ph 6.5 (4.6-8.0); Protein,Urine Dip Negative (Negative); RBC 0-2 /HPF (0-5); Specific Gravity <=1.005 (1.005-1.030); Urobilinogen 0.2 mg/dL (0.2); WBC 51-100 /HPF (0-5)
[2023-09-17] MEDS ORDERED: KEFLEX 500 MG ONE (00:47)
[2023-09-17] MEDS: KEFLEX 500 MG PO ONE (00:48)
[2023-09-17 01:05] VITALS: BP 148/94; PULSE 81; RESP 20; O2SAT 100
== END 2023-09-17 01:06 | disposition home or self-care (01) ==
LOC: ED 23:46
DX: N39.0 Urinary tract infection, site not specified (principal); R30.0 Dysuria; R35.0 Frequency of micturition; Z79.899 Other long term (current) drug therapy
CPT/HCPCS: 81001; 87077; 87086; 87186; 99283; A9270-GY